=== PATIENT | male | born 1960 | race Caucasian/White ===

== ENCOUNTER 2017-02-18 18:55 | Observation (INO) ==
[2017-02-18] MEDS ORDERED: Aspirin 81 MG TAB.CHEW PO ONE (19:40)
[2017-02-18] MEDS ORDERED: Nitroglycerin 0.4 MG TAB.SUBL SL PRN (19:41)
--- NOTE | 2017-02-18 19:41 | Emergency Department Note ---
Disposition Clinical Impression: Unstable angina Chest pain Qualifiers: Chest pain type: unspecified Qualified Code(s): R07.9 - Chest pain, unspecified Disposition: Admitted As Inpatient Condition: Fair Time of Disposition: 21:54 Chest Pain HPI - General Chief Complaint: ED Chest Pain Stated Complaint: CP Time Seen by Provider: 02/18/17 19:34 Source: patient Mode of arrival: ambulatory Limitations: no limitations Vital Signs Reviewed: Yes Nursing Notes Reviewed: Yes - History of Present Illness HPI Narrative: 56-year-old male history of hypertension, diabetes, hyperlipidemia and obesity presents for evaluation of chest pain. Patient states he has had intermittent chest pain over the past 2-3 days. Noticed to be nonexertional but worse with exertion. Describes as a chest pressure in his left chest with radiation as left arm. Patient denies history of cardiac disease. Patient reports some dyspnea. There is no pleuritic component to his chest pain. Denies any fevers or cough. Denies history of vomiting or diaphoresis. Denies history of heart disease. Denies any cardiac evaluation of his heart in the past. Patient does report some black stools. Patient denies any history of active cancers. No hemoptysis. No history of DVT or PE. 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 Severity scale (1-10): 4 - Related Data Home Medications Medication Instructions Recorded Confirmed Sitagliptin Phos/Metformin HCl 1 each PO BID 02/18/17 02/18/17 [Janumet 50-1,000 mg Tablet] Allergies Allergy/AdvReac Type Severity Reaction Status Date / Time lisinopril AdvReac Cough Verified 02/18/17 19:02 All systems ED: reviewed and negative except as stated. Constitutional: Reports: as per HPI. Denies: fever Eyes: Reports: as per HPI ENT ED: Reports: as per HPI Cardiovascular: Reports: as per HPI, chest pain Respiratory: Reports: as per HPI, dyspnea Gastrointestinal: Reports: as per HPI. Denies: abdominal pain, nausea, vomiting Genitourinary: Reports: as per HPI Integumentary: Reports: as per HPI Neurological: Reports: as per HPI Psychiatric: Reports: as per HPI Endocrine: Reports: as per HPI Hematological/Lymphatic: Reports: as per HPI Chest Pain PMH - Past Medical History Medical history: Reports: diabetes, hyperlipidemia, hypertension Psychiatric history: Reports: depression - Social History Smoking Status: Never smoker Alcohol use: Reports: occasionally Drug use: Reports: none Physical Exam - General Limitations: no limitations General appearance: alert, in no apparent distress, obese - Head Head exam: atraumatic, normal inspection - Eye Eye exam: Present: normal appearance, EOMI - ENT ENT exam: normal exam - Neck Neck exam: Present: normal inspection - Chest Chest inspection: Present: normal inspection, symmetric chest wall rise. Absent : tenderness - Respiratory Respiratory exam: Present: normal lung sounds bilaterally. Absent: respiratory distress - Cardiovascular Cardiovascular exam: Present: regular rate, normal rhythm. Absent: systolic murmur - Abdominal Exam Abdominal exam: Present: soft, Non-Tender - Extremities Exam Extremities exam: Present: normal inspection. Absent: pedal edema - Back Exam Back exam: Present: normal inspection. Absent: CVA tenderness (R), CVA tenderness (L) - Neurological Exam Neurological exam: Present: alert, oriented X3, CN II-XII intact - Skin Skin exam: Present: warm, dry, intact, normal color Course Course Narrative: Patient seen and examined. Patient does have risk factors for coronary artery disease. Patient will get a cardiac evaluation with EKG, troponins. His interaction with aspirin as well as nitroglycerin. - Reevaluation(s) Reevaluation #1: Patient is pain-free. Time: 20:29 Reevaluation #2: Patient seen and examined. Pain improved. Will admit to hospital service for Cardiology monitoring. Time: 20:53 Vital Signs Temperature 97.6 F 02/18/17 18:58 Pulse Rate 90 02/18/17 18:58 Respiratory Rate 16 02/18/17 18:58 Blood Pressure 185/96 02/18/17 18:58 O2 Sat by Pulse Oximetry 96 02/18/17 18:58 Temperature 97.6 F 02/18/17 18:58 Pulse Rate 86 02/18/17 20:47 Respiratory Rate 18 02/18/17 21:35 Blood Pressure 152/89 02/18/17 21:35 O2 Sat by Pulse Oximetry 96 02/18/17 20:47 Oxygen Delivery Oxygen Delivery Room Air Chest Pain - MDM Narrative Medical decision making narrative: 56-year-old male present for by recent chest pain. Notes been intermittent over the past 2-3 days. Patient does have a concerning history of chest pressure on the left side with radiation down his left arm. Worse with exertion but does noted at rest on occasion. Reports dyspnea but no cough or fevers. Patient's pain is not pleuritic. Patient has no concerning symptoms of pulmonary embolism patient's evaluation is more consistent with ACS. Patient is not hypoxic. patient's records review does show that he has no recent cardiopulmonary evaluation. Patient's heart score is moderate with a score of 5. Patient would likely benefit from inpatient stress test and monitoring. Patient is agreeable with plan of care. Patient was pain-free in the emergency department. - Lab Data Lab results reviewed: Yes I reviewed the patient's lab results. Result diagrams: 02/18/17 20:16 02/18/17 20:16 Lab Results 02/18/17 02/18/17 02/18/17 Range/Units 20:16 20:16 20:16 WBC 6.2 (4.3-11.1) K/mcL RBC 5.00 (4.19-5.50) M/mcL Hgb 15.0 (12.9-16.9) g/dL Hct 42.4 (37.5-50.1) % MCV 84.8 (83.0-100.0) fL MCH 30.0 (28.0-33.3) pg MCHC 35.4 (31.6-35.5) g/dL RDW 12.4 (11.5-14.5) % Plt Count 179 (140-400) K/mcL MPV 10.5 (9.4-12.4) fL Immature Gran % 1.1 (0-4) % Seg Neutrophils % 53.2 % Lymphocytes % 33.6 % Monocytes % 7.6 % Eosinophils % 3.7 % Basophils % 0.8 % Neutrophils # 3.3 (1.6-8.9) K/mcL Lymphocytes # 2.1 (0.6-4.6) K/mcL Monocytes # 0.5 (0.0-1.3) K/mcL Eosinophils # 0.2 (0.0-0.6) K/mcL Basophils # 0.1 (0.0-0.2) K/mcL Sodium 140 (136-145) mEq/L Potassium 4.0 (3.5-4.5) mEq/L Chloride 105 (98-109) mEq/L Carbon Dioxide 28 (19-29) mEq/L BUN 17 (8-26) mg/dL Creatinine 1.27 H (0.72-1.25) mg/dL Est GFR ( Amer) > 60 (> 60) Est GFR (Non-Af Amer) 59 L (> 60) BUN/Creatinine Ratio 13 (6-26) Glucose 329 H (70-99) mg/dL Calculated Osmolality 304 H (280-300) Calcium 9.3 (8.6-10.8) mg/dL Troponin I 0.01 (0-0.03) ng/mL - Radiology Data Radiology results reviewed: Yes I reviewed the patient's radiology results. Chest X-Ray 02/18/17 18:57 IMPRESSION: No acute cardiopulmonary abnormality. D/ / Andrea Kaufman MD / Andrea Kaufman MD Interpreting Provider: Andrea Kaufman MD - EKG Data EKG attestation: Yes I reviewed and interpreted this EKG. EKG shows normal: sinus rhythm Rate: normal Rhythm: NSR [place]/QRS: normal Q waves: aVR, v1 T wave inversions noted in: v1 (Flattened) Interpretation: no acute changes, unchanged when compared to prior tracing (date ) (2011) Heart Score - Score History: Highly Suspicious EKG: Normal Age: 45-65 Risk Factors: Equal/Greater than 3 risk factor or history of atherosclerotic disease Troponin: Less than normal limit HEART Score Total: 5 S.B.A.R. - S.B.A.RRadha Situation: Demographics Background: Presenting Complaint Assessment: Vital Signs, Course and respsone to treatment Recommendation: Recommendation based on pending studies, treatments, or consults S.B.A.RRadha Report Given to: Dr. Zana StarkeyBRadhaAUmer Repor Time: 21:03 Attestation Statement - Attestation Attestation: I, Aashish Humphrey MD, personally evaluated this patient and discussed their management with the resident physician. I reviewed the resident's note and agree with the documented findings, medical decision making, and plan of care. 56-year-old male presents to the emergency department with a complaint of intermittent left-sided chest pain over the past 3-4 days. The pain radiates to the left arm. Pain seems to be improved with rest. No pain at present. Patient denies any prior history of heart problems however does have a history of diabetes, hypertension, and hyperlipidemia. Patient is also obese. He is a nonsmoker. On examination patient is a well-developed morbidly obese male in no acute distress. He is alert and oriented 3. There is no cyanosis or diaphoresis. Chest is nontender to palpation. Breath sounds are clear and equal bilaterally. Heart regular rate and rhythm. Abdomen soft and nontender with normal bowel sounds. Labs reviewed. Troponin normal. Chest x-ray negative. No acute changes on EKG. The hospitalist, Dr. Spann, was consulted and accepted admission of the patient.
[2017-02-18 20:26] LABS: Basophils # 0.1 K/mcL (0.0-0.2); Basophils % 0.8 %; Eosinophils # 0.2 K/mcL (0.0-0.6); Eosinophils % 3.7 %; Hematocrit 42.4 % (37.5-50.1); Immature Granulocytes % 1.1 % (0-4); Lymphocytes # 2.1 K/mcL (0.6-4.6); Lymphocytes % 33.6 %; Mean Corpuscular HGB Conc 35.4 g/dL (31.6-35.5); Mean Corpuscular Volume 84.8 fL (83.0-100.0); Mean Platelet Volume 10.5 fL (9.4-12.4); Monocytes # 0.5 K/mcL (0.0-1.3); Monocytes % 7.6 %; Neutrophils # 3.3 K/mcL (1.6-8.9); Platelet Count 179 K/mcL (140-400); Red Cell Distribution Width 12.4 % (11.5-14.5); Segmented Neutrophils % 53.2 %
[2017-02-18 20:41] LABS: BUN/Creatinine Ratio 13 (6-26); Blood Urea Nitrogen 17 mg/dL (8-26); Calcium 9.3 mg/dL (8.6-10.8); Carbon Dioxide 28 mEq/L (19-29); Chloride 105 mEq/L (98-109); Glucose 329 mg/dL (70-99); Osmolality,Calculated 304 (280-300); Sodium 140 mEq/L (136-145); eGFR For African Americans > 60 (> 60); eGFR For Non-African Americans 59 (> 60)
[2017-02-18] MEDS ORDERED: Naloxone 0.4 MG/ML INJ IVP PRN (22:14)
[2017-02-18] MEDS ORDERED: Ondansetron ODT 4 MG TAB.RAPDIS SL PRN (22:14)
[2017-02-18] MEDS ORDERED: Acetaminophen 325 MG TABLET PO PRN (22:14)
--- NOTE | 2017-02-18 22:24 | Internal Med History&Physical ---
<Olivier Lara - Last Filed: 02/18/17 22:19> Date of Encounter: 02/18/17 Time of Encounter: 21:50 Assessment and Plan (1) Chest pain Current visit: Yes Status: Acute Patient presents with 4 days of left-sided dull chest pain. Chest pain appears to be noncardiac in nature as it is exacerbated with left upper extremity movements, not exacerbated with walking or strenuous activity. Patient is not taking aspirin, it does not radiate to his jaw or left arm. His left shoulder blade pain he says is separate from his dull chest pain. Rest improves the pain. - Even though the presentation appears to be noncardiac his risk factors are significant enough to be concerning. He also has a significant past medical history of a father that had an TN in his 40s and a brother that has multiple stents. - Patient denies any history of myocardial infarction, coronary artery disease, tobacco abuse, peripheral artery disease. EKG reviewed demonstrating normal sinus rhythm with appropriate FL and QT interval. No ST elevation or depression. Risk factors: Hypertension, hyperlipidemia, type 2 diabetes with diabetic neuropathy, morbid obesity, obstructive sleep apnea. 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 Qualifiers: Chest pain type: unspecified Qualified Code(s): R07.9 - Chest pain, unspecified (2) Type 2 diabetes mellitus Current visit: Yes Status: Acute Known type II diabetic on oral anti-hyperglycemics. Patient presents hyperglycemic with a glucose greater than 300. Plan: - Before meals and at bedtime glucose checks - Low-dose insulin sliding scale Qualifiers: Qualified Code(s): E11.9 - Type 2 diabetes mellitus without complications (3) Hyperlipidemia Current visit: Yes Status: Acute Known history of hyperlipidemia. Patient is not on a statin or other appropriate medications. Plan: - Starting statin, lipid panel. Qualifiers: Qualified Code(s): E78.5 - Hyperlipidemia, unspecified (4) Obstructive sleep apnea Current visit: Yes Status: Acute Patient has a history of obstructive sleep apnea, uses CPAP every night while sleeping. We will continue during inpatient stay. (5) DVT prophylaxis Current visit: Yes Status: Acute Lovenox subcutaneous every morning. Internal Medicine - H&P: HPI Chief complaint: chest pain Admitted From: Emergency Dept Plans for Post Hospital Care: Home History of present illness: Mr. Linares is a 56 year old male significant past mental history of type 2 diabetes, hypertension, hyperlipidemia, morbid obesity, arthritis presented to the emergency department with left-sided chest pain. Mr. 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 He started developing a left sided chest dull pain that will stay constant but improved with rest when he lays down in bed. It is not really exacerbated with activity such as walking but more so when he is using his upper extremities. He also notices a sharp pain in his shoulder blade when he extends at the glenohumeral joint. He said over the last 4 days this pain has been more severe and unremitting and today it was not getting better which started to concern him and his significant other. He denies any associated nausea, vomiting, diarrhea , palpitations, diaphoresis, blurry vision, acid reflux, abdominal pains, change in urination or frequency of urination. He does admit to having occasional black or dark stools 2 episodes over the past 3 weeks. He said it is abnormal but denies it being sticky in nature or any jarrett red blood. He said he had a colonoscopy 5 years ago without any concerning findings. He has been taking his metformin but has not been on any blood pressure medications for several months since they were too expensive. He says his blood pressure is not controlled without blood pressure medications. He has improved his diet and has been trying to eat healthier. He denies smoking or previous history of smoking except for an occasional cigar in social settings. He denies excess alcohol use or any drug use. He maintains good humor and is very talkative without any signs of distress. Past Med Surg Social Fam HX - Past Medical History Medical history: diabetes, hyperlipidemia, hypertension Psychiatric history: depression - Past Surgical History Surgical History: cataract - Social History Smoking Status: Never smoker Smokeless Tobacco Status: No Alcohol use: occasionally Drug use: none - Family History Father Living Status: Hx Family Endocrine Disorder: Yes (Type 2 diabetes) Mother Race: Living Status: Cause of : Lymphoma Internal Medicine - H&P: Meds Sitagliptin Phos/Metformin HCl [Janumet 50-1,000 mg Tablet] 1 each PO BID [History] Allergies lisinopril Adverse Reaction (Verified 02/18/17 19:02) Cough All Systems PM: A 10-system review of systems was performed and is negative for pertinent findings except as documented above in the HPI. - Constitutional Constitutional: no chills, no fever(s), no night sweats - EENT Eyes: no change in vision, no discharge, no pain, no photophobia Ears: no ear discharge, no ear pain, no tinnitus Nose, mouth and throat: no dysphagia, no nasal discharge, no neck pain, no sore throat - Cardiovascular Cardiovascular ROS IM: chest pain, no diaphoresis, no dyspnea, no lightheadedness, no palpitations, no syncope - Respiratory Respiratory: no cough, no dyspnea, no wheezing, no excessive phlegm production - Gastrointestinal Gastrointestinal: no abdominal pain, no diarrhea, no hematemesis, no hematochezia, no melena, no nausea, no vomiting - Musculoskeletal Musculoskeletal ROS IM: back pain, no numbness, no tingling Additional comments: Left shoulder blade pain. - Integumentary Integumentary IM: no rash, no unusual bruising - Neurological Neurological ROS: no confusion, no convulsions, no focal weakness, no numbness, no tingling, no tremor(s) - Hematologic/Lymphatic Hematologic/Lymphatic: no easy bruising - Constitutional Vitals: Temp Pulse Resp BP Pulse Ox 98 F 85 18 130/84 96 02/18/17 22:17 02/18/17 22:17 02/18/17 22:17 02/18/17 22:17 02/18/17 22:17 Exam: General: Patient alert, awake, oriented 3, interactive, in no acute distress HEENT: Normocephalic, atraumatic, pupils equal reactive to light, nasal cavity patent and open septum median position, oral mucosa moist, uvula midline, neck supple trachea midline no palpable lymphadenopathy, no thyromegaly. Chest: Symmetric bilateral correlating with respiratory effort, effort nonlabored. Cardiac: Regular rate and rhythm, positive S1 and S2. no bruits appreciated bilateral carotids, Radial pulses 2+ bilateral, posterior tibial and dorsal pedal pulses 2+ bilateral. Respiratory: Clear to auscultation all lung martin Abdomen: Soft, obese, nontender, positive bowel sounds, no palpable masses appreciated on examination Extremities: Symmetric bilateral, bilateral lower extremities without erythema or edema patient moving all 4 extremities spontaneously. Neurologic: No focal deficits appreciated on examination. Face symmetric, muscle strength symmetric bilateral upper and lower extremities. Internal Med - H&P Results - Labs CBC & Chem 7: 02/18/17 20:16 02/18/17 20:16 <David Spann - Last Filed: 02/19/17 05:48> Date of Encounter: 02/18/17 Internal Medicine - H&P: HPI Admitted From: Hospital to Hospital Transfer History of present illness: Mr. Linares is a 56 year old male Past Med Surg Social Fam HX - Family History Father Hx Family Cardiac Disorders: Yes (TN) Hx Family Endocrine Disorder: Yes (DM) Mother Hx Family Cancer: Yes (LUEKEMIA) Brother Hx Family Cardiac Disorders: Yes (DEFIB) Hx Family Cancer: Yes All Systems PM: A 10-system review of systems was performed and is negative for pertinent findings except as documented above in the HPI. - Constitutional Vitals: Temp Pulse Resp BP Pulse Ox 97.4 F L 84 18 166/98 98 02/19/17 02:39 02/19/17 02:39 02/19/17 02:39 02/19/17 02:39 02/19/17 02:39 Internal Med - H&P Results - Labs CBC & Chem 7: 02/19/17 03:25 02/19/17 03:25 Labs: Short CBC 02/19/17 Range/Units 03:25 WBC 5.0 (4.3-11.1) K/mcL Hgb 14.0 (12.9-16.9) g/dL Hct 41.6 (37.5-50.1) % Plt Count 153 (140-400) K/mcL BMP 02/19/17 03:25 Sodium 139 Potassium 4.0 Chloride 105 Carbon Dioxide 29 BUN 18 Creatinine 1.22 Glucose 329 H Calcium 8.7 Cardiac Enzymes 02/19/17 Range/Units 03:25 Troponin I 0.00 (0-0.03) ng/mL - EKG Data -: EKG Interpreted by Myself EKG shows normal: sinus rhythm - Diagnostic Studies Chest x-ray Status: image reviewed by me - Attending Attestation I personally interviewed and examined this patient and my medical decision- making was reviewed with the Resident Physician. I agree with the documented findings, disposition and treatment plan as described. David Spann MD, MPH Hospitalist
[2017-02-18] MEDS ORDERED: D5% in Water 1,000 ML IVC PRN (22:39)
[2017-02-18] MEDS ORDERED: Dextrose Gel 15 GM PO PRN ×2 (22:39)
[2017-02-18] MEDS ORDERED: *HR* Dextrose 50 % in Water (Syg) 50 ML SYRINGE IVP PRN (22:39)
[2017-02-18] MEDS: 0.9 % Sodium Chloride 1,000 ML IVC SCH (23:27)
[2017-02-19 04:14] LABS: Hematocrit 41.6 % (37.5-50.1); Mean Corpuscular HGB Conc 33.7 g/dL (31.6-35.5); Mean Corpuscular Hemoglobin 28.8 pg (28.0-33.3); Mean Corpuscular Volume 85.6 fL (83.0-100.0); Mean Platelet Volume 10.3 fL (9.4-12.4); Platelet Count 153 K/mcL (140-400); Red Blood Count 4.86 M/mcL (4.19-5.50)
[2017-02-19 04:35] LABS: BUN/Creatinine Ratio 15 (6-26); Blood Urea Nitrogen 18 mg/dL (8-26); Calcium 8.7 mg/dL (8.6-10.8); Carbon Dioxide 29 mEq/L (19-29); Chloride 105 mEq/L (98-109); Chol/HDL Ratio 7.3 (0-4.9); Cholesterol 191 mg/dL (< 200); Glucose 329 mg/dL (70-99); HDL Cholesterol 26 mg/dL (40-59); LDL Cholesterol,Calculated 106 mg/dL (0-99); Osmolality,Calculated 303 (280-300); Sodium 139 mEq/L (136-145); Triglycerides 295 mg/dL (< 150); eGFR For African Americans > 60 (> 60); eGFR For Non-African Americans > 60 (> 60)
[2017-02-19] MEDS ORDERED: Regadenoson 0.4 MG/5 ML SYRINGE IVP ONE (05:50)
[2017-02-19] MEDS: *HR* Enoxaparin 40 MG/0.4 ML SYRINGE SQ SCH (05:52)
--- NOTE | 2017-02-19 09:35 | Electrocardiograph Report ---
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
[2017-02-19] MEDS: Aspirin 81 MG TAB.CHEW PO SCH (10:54)
[2017-02-19] MEDS: Insulin LISPRO 300 UNITS/3 ML VIAL SQ SCH ×3 (10:54→17:18)
[2017-02-19] MEDS: 0.9 % Sodium Chloride 1,000 ML IVC SCH ×2 (11:03→19:30)
--- NOTE | 2017-02-19 18:37 | Internal Med Progress Note ---
Date of Encounter: 02/19/17 Time of Encounter: 11:00 - Assessment and plan (1) Chest pain Current Visit: Yes Status: Acute Assessment and plan: Patient states that he has had 3-4 day history of left chest pain. He says that he has a right rotator cuff injury and has been using his left arm more and has noticed pain since that time. He describes it as a chest heaviness A does report shortness of breath but denies diaphoresis or nausea. He has a 2 day stress test and will finish tomorrow. There is no radiation of the pain. It is not reproducible with deep inspiration or palpation. He says that it does change and is reproducible with movement of his left arm. He reports classic GERD symptoms and says he has been treating it with over-the- counter medication. He has been taking Pepto-Bismol frequently. His prior cardiac history, he does not smoke, does not use recreational drugs, does not drink alcohol frequently. He has been started on aspirin, Lipitor. Lipid panel is elevated. I will start patient on low-dose beta jakob. Troponins have been negative. EKG was normal sinus rhythm with a rate of 89, CA interval 145, QRS duration 93, QTC 387. Chest x-ray was negative. Continue telemetry Stress test results Cardiology consult if abnormal. Qualifiers: Chest pain type: unspecified Qualified Code(s): R07.9 - Chest pain, unspecified (2) Type 2 diabetes mellitus Current Visit: Yes Status: Acute Assessment and plan: A1c ordered for the morning. Continue Accu-Cheks before meals at bedtime, diabetic diet, sliding scale insulin. Qualifiers: Diabetes mellitus complication status: without complication Diabetes mellitus adjunct faculty for medical terminology insulin use: without prison use Qualified Code(s): E11.9 - Type 2 diabetes mellitus without complications (3) Hyperlipidemia Current Visit: Yes Status: Acute Qualifiers: Qualified Code(s): E78.5 - Hyperlipidemia, unspecified (4) Obstructive sleep apnea Current Visit: Yes Status: Acute (5) DVT prophylaxis Current Visit: Yes Status: Acute - Time Spent With Patient less than 15 minutes - Subjective Interval history: She was seen and evaluated at 11 AM. He reports his chest now feels "numb like ". He denies actual chest pain, diaphoresis or nausea, shortness of breath. He reports that he has chronic GERD has been treating himself with over-the- counter medications I will start him on omeprazole. Abdomen is tender in epigastric area. Pain is not reproducible with deep inspiration, palpation or movement. Patient is a 2 day stress test, will finish tomorrow. - Constitutional Vitals: Temp Pulse Resp BP Pulse Ox 97.8 F 99 16 128/81 96 02/19/17 18:31 02/19/17 18:31 02/19/17 18:31 02/19/17 18:31 02/19/17 18:31 General appearance: Present: A&O X 3, morbidly obese, pleasant, no acute distress, answers questions appropriately - Head Head exam: Present: normal inspection - Eye Eye exam: Present: normal appearance, conjuntiva pink - ENT ENT exam: Present: mucous membranes moist, normal exam, normal external ear exam - Neck Neck exam general surgery: Present: normal inspection. Absent: lymphadenopathy , tenderness - Respiratory Respiratory exam: Present: CTAB. Absent: chest wall tenderness, decreased breath sounds, rales, respiratory distress, rhonchi, stridor, wheezes - Cardiovascular Cardiovascular exam: Present: RRR, +S1, +S2. Absent: clicks, diastolic murmur, gallop, systolic murmur - GI/Abdominal GI/Abdominal exam: Present: distended, normal bowel sounds, tenderness. Absent : hepatomegaly - Extremities Exam Extremities exam: Present: joint swelling, normal inspection, warm, radial pulses palpable and symetrical. Absent: pedal edema, tenderness - Neurological Exam Neurological exam: Present: alert, oriented X3, no focal deficits. Absent: facial droop, speech deficit Internal Medicine: Result - Labs CBC & Chem 7: 02/19/17 03:25 02/19/17 03:25 Labs: Short CBC 02/19/17 Range/Units 03:25 WBC 5.0 (4.3-11.1) K/mcL Hgb 14.0 (12.9-16.9) g/dL Hct 41.6 (37.5-50.1) % Plt Count 153 (140-400) K/mcL BMP 02/19/17 03:25 Sodium 139 Potassium 4.0 Chloride 105 Carbon Dioxide 29 BUN 18 Creatinine 1.22 Glucose 329 H Calcium 8.7 Cardiac Enzymes 02/19/17 02/19/17 02/19/17 Range/Units 03:25 07:43 13:52 Troponin I 0.00 0.00 0.00 (0-0.03) ng/mL Consult Discharge Plan - Plan Referrals: NO,PCP [Non-Partnered Physician] -
[2017-02-19] MEDS ORDERED: Insulin LISPRO 300 UNITS/3 ML VIAL SQ SCH (21:00)
[2017-02-20] MEDS: 0.9 % Sodium Chloride 1,000 ML IVC SCH (04:19)
[2017-02-20] MEDS: *HR* Enoxaparin 40 MG/0.4 ML SYRINGE SQ SCH (05:17)
[2017-02-20 05:37] LABS: Basophils % 0.7 %; Eosinophils # 0.2 K/mcL (0.0-0.6); Eosinophils % 3.5 %; Hematocrit 40.7 % (37.5-50.1); Hemoglobin 14.2 g/dL (12.9-16.9); Immature Granulocytes % 1.2 % (0-4); Lymphocytes # 1.6 K/mcL (0.6-4.6); Lymphocytes % 26.7 %; Mean Corpuscular HGB Conc 34.9 g/dL (31.6-35.5); Mean Corpuscular Hemoglobin 29.6 pg (28.0-33.3); Mean Corpuscular Volume 84.8 fL (83.0-100.0); Mean Platelet Volume 10.2 fL (9.4-12.4); Monocytes # 0.4 K/mcL (0.0-1.3); Neutrophils # 3.7 K/mcL (1.6-8.9); Platelet Count 149 K/mcL (140-400); Segmented Neutrophils % 60.9 %
[2017-02-20 05:51] LABS: Hemoglobin A1C 8.3 %
[2017-02-20 05:53] LABS: BUN/Creatinine Ratio 16 (6-26); Blood Urea Nitrogen 16 mg/dL (8-26); Calcium 8.9 mg/dL (8.6-10.8); Carbon Dioxide 30 mEq/L (19-29); Chloride 104 mEq/L (98-109); Glucose 294 mg/dL (70-99); Osmolality,Calculated 298 (280-300); Potassium 4.4 mEq/L (3.5-4.5); Sodium 138 mEq/L (136-145); eGFR For African Americans > 60 (> 60); eGFR For Non-African Americans > 60 (> 60)
[2017-02-20] MEDS: Insulin LISPRO 300 UNITS/3 ML VIAL SQ SCH ×2 (09:48→11:31)
[2017-02-20] MEDS: Aspirin 81 MG TAB.CHEW PO SCH (09:57)
[2017-02-20 11:04] VITALS: BP 141/87
--- NOTE | 2017-02-20 11:32 | Nuclear Medicine Stress Report ---
Regadenoson Nuclear 2 day Name: Kan Linares Date of Study: 02/19/2017 Date: 1960 Ht: 72.0 in Medical Record#: [id number] Age: 56 Wt: 361.0 lb Gender: Male Order #: [id number] Location: [facility] Room: [facility] Supervising Provider: Maggie Horan CNP Reading Physician: Marc Campbell MD, [facility] Ordering Physician: Chel Brown CNP Primary Care Physician: Claudio Aviles MD Stress Technologist: Yakov Adler CHANDELIER MAKER, [facility] Asphalt Plant Worker: Abelardo Reyes Indications: Chest Pain Impression: The left ventricle is borderline dilated. Gated LVEF = 52%. There is a small sized, moderate-severe intensity, fixed perfusion defect involving the LV apex. Suspect artifact, however, a small myocardial infarction cannot be excluded. There is no evidence of reversible myocardial ischemia. History: Hypertension Diabetes Hypercholesteremia Stress Test Summary: Stress Test Type: Pharmacologic Regadenoson 0.4mg/5ml given IV Baseline Information: Initial Heart Rate: 79 Blood Pressure: 118/80 Stress Information: Test Terminated Due to (primary): As per protocol Maximum Blood Pressure: 112/80 Maximum Heart Rate: 96 Percent Maximum Heart Rate Achieved: 58 Double Product: [id number] Symptoms: Shortness of breath Nuclear Summary: SPECT myocardial perfusion imaging using [id number] Sestamibi given intravenously was performed at rest and following cardiac stress testing. The resting images were obtained following initial dose of 31.8 mCi. Following stress an additional dose of 35.3 mCi was given at peak exercise or 30 seconds post regadenoson infusion. Findings: Stress Note * Resting ECG demonstrated normal sinus rhythm. * No baseline arrhythmias were noted. * Patient had no chest pain during stress. * No arrhythmias were noted during stress. * No significant ECG changes with regadenoson. Hemodynamic responses * Normal hemodynamic responses to pharmacologic stress. Study Quality * Study quality is average. Gated EF % * Gated LVEF = 52%. Left Ventricle * The left ventricle is borderline dilated. * There is a small sized, moderate-severe intensity, fixed perfusion defect involving the LV apex. Suspect artifact, however, a small myocardial infarction cannot be excluded. * All other segmental perfusion normal in rest and stress. * There is no evidence of reversible myocardial ischemia. TID * No evidence of transient ischemic dilatation. Updated by Marc Campbell MD, FACC on 02/20/2017 11:26:40 AM electronically signed on 02/20/2017 11:27:41 AM with status of Final
--- NOTE | 2017-02-20 14:05 | Discharge Summary ---
Date of Encounter: 02/20/17 Time of Encounter: 13:10 - Discharge Diagnosis (1) Chest pain Priority: Primary Status: Acute Comments: Chest pain is resolved. Patient denies chest pain today. Stress test showed that the left ventricle is borderline dilated. Gated EF of 52%. There is a small sized, moderate severe intensity, fixed perfusion defect involving the LV apex. Suspect artifact, however, a small myocardial infarction cannot be excluded. There is no evidence of reversible myocardial ischemia. I discussed case with cardiology RELIGIOUS LEADER. Patient is to follow up outpatient in the clinic. HEENT I discussed risk factor modification including weight loss, controlling hypertension, diabetes, and cholesterol. Patient verbalized understanding. Patient will be sent home on aspirin, Lipitor, metoprolol. Qualifiers: Chest pain type: unspecified Qualified Code(s): R07.9 - Chest pain, unspecified (2) Type 2 diabetes mellitus Priority: Secondary Status: Chronic Comments: Chronic. A1c is 8.3. Continue medication regimen at home, as well as Accu- Cheks. Lifestyle modifications are [place] to cardiac risk factor reduction. Qualifiers: Diabetes mellitus complication status: without complication Diabetes mellitus mcfp insulin use: without long term care administrator use Qualified Code(s): E11.9 - Type 2 diabetes mellitus without complications (3) Hyperlipidemia Priority: Secondary Status: Chronic Comments: Chronic. Continue Lipitor. Lifestyle modifications. Qualifiers: Qualified Code(s): E78.5 - Hyperlipidemia, unspecified (4) Obstructive sleep apnea Priority: Secondary Status: Chronic (5) DVT prophylaxis Priority: Secondary Status: Acute Comments: Lovenox subcutaneous. (6) Morbid obesity with BMI of 45.0-49.9, adult Priority: Secondary Status: Chronic Comments: Chronic. Lifestyle changes. - Discharge Medications Prescriptions: Aspirin 81 mg PO DAILY #30 tab Atorvastatin [Lipitor] 40 mg PO HS #30 tab Metoprolol [Lopressor] 12.5 mg PO BID #30 tab Home Medications: Sitagliptin Phos/Metformin HCl [Janumet 50-1,000 mg Tablet] 1 each PO BID [History] Aspirin 81 mg PO DAILY #30 tab 02/20/17 [Rx] Atorvastatin [Lipitor] 40 mg PO HS #30 tab 02/20/17 [Rx] Metoprolol [Lopressor] 12.5 mg PO BID #30 tab 02/20/17 [Rx] Allergies/Adverse Reactions: Allergies lisinopril Adverse Reaction (Verified 02/18/17 19:02) Cough Procedures/tests Complete & Pending: Procedures Performed prior 72 hours Category Date Time Status NM carleen perf SPECT multi [NM] Routine Exams 02/18/17 22:30 Taken ECG 12 lead ECG [ECG] AM 0600 Y 02/19/17 06:00 Ordered SP pharm nuclear stress Routine Y 02/19/17 07:10 Completed Date of admission: 02/18/17 21:17 Primary care physician: Claudio Aviles MD Discharging clinician: Chel Brown Anticipated date of discharge: 02/20/17 - Patient Status Disposition: Home, Self-Care Condition: Good Functional capacity at discharge: independent ambulation Overall status at discharge: patient is back to baseline - Discharge Instructions Follow Up With: NO,PCP [Non-Partnered Physician] - Additional Instructions: Follow up with her primary care physician in the next 7-10 days for follow-up appointment. Start your new medications today. Cardiology will call you for a follow-up visit. If you do not hear from them in the next 3-4 days, call [place] [facility] for an appointment. Return to the emergency department for any new or worsening symptoms. - Diet and Activity Activity: increase activity as tolerated Diet: diabetic diet, low fat, low cholesterol, low salt diet Hospital course: Mr. Linares is a 56 year old male with medical history of diabetes, hypertension , morbid obesity, arthritis and sleep apnea. He presents to the emergency department yesterday for left-sided chest pain. 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 He reports he believes using his left arm and increased job stress has caused him to have the chest pain. He reports left-sided dull pain will stay constant but improved with rest It is not increased with deep inspiration, movement, or palpation. He denies nausea, vomiting, diarrhea, palpitations, diaphoresis, headache, dizziness. Patient states that he has been taking his metformin, was not taking his blood pressure medications because they became too expensive. He reports hypertension when he does not take his medications. He is a nonsmoker, he does not drink alcohol. Patient concluded his 2 day stress test today. He denies chest pain today. Chest x-ray shows no acute cardiopulmonary abnormality. EKG showed sinus rhythm with a rate of 89, RI interval 145, QRS duration 93, QTC 387. Troponins were negative 3. Stress test showed that the left ventricle is borderline dilated area gated EF is 52%. There is a small sized, moderate to severe intensity fixed perfusion defect involving the LV apex. Suspect artifact, however, a small myocardial infarction cannot be excluded. There is no evidence of reversible myocardial ischemia. Patient and I discussed the results he is aware. I also discussed the results with cardiology RELIGIOUS LEADER and class b truck driver on-call, patient will follow up outpatient in their office. Lipid panel is elevated and he has been started on a statin. He has not been consistent with taking his medications due to financial expense. He has been started on a beta jakob and will be sent home with prescription. He will also take a baby aspirin daily. His A1c is mildly elevated at 8.3. Patient states he has been compliant with his metformin, however, he does not always adhere to a diabetic diet. We discussed increasing exercise and decreasing risk factors. Patient's vital signs and stable, labs are within normal limits. Patient is ready for discharge. - Time Spent with Patient Total time spent providing and/or coordinating discharge services: Less than 30 minutes - Constitutional Vitals: Temp Pulse Resp BP Pulse Ox 97.4 F L 62 14 141/87 98 02/20/17 10:58 02/20/17 10:58 02/20/17 10:58 02/20/17 10:58 02/20/17 10:58 General appearance: Present: A&O X 3, morbidly obese, pleasant, no acute distress, answers questions appropriately - Head Head exam: Present: normal inspection - Eye Eye exam: Present: normal appearance, conjuntiva pink - ENT ENT exam: Present: mucous membranes moist, normal exam - Neck Neck exam general surgery: Present: normal inspection. Absent: lymphadenopathy , tenderness - Respiratory Respiratory exam: Present: CTAB. Absent: chest wall tenderness, rales, respiratory distress, rhonchi, stridor, wheezes, tachypnea - Cardiovascular Cardiovascular exam: Present: RRR, +S1, +S2. Absent: diastolic murmur, systolic murmur - GI/Abdominal GI/Abdominal exam: Present: distended, soft. Absent: hepatomegaly, tenderness - Neurological Exam Neurological exam: Present: alert, oriented X3, strengths equal and symetr throughout. Absent: facial droop, speech deficit - Skin Skin exam: Present: dry, intact, normal color, warm. Absent: rash
== END 2017-02-20 15:30 | disposition home or self-care (01) ==
LOC: EMEROO 18:55 → 3BNU 18:55
PROVIDERS: ADMIT Internal Medicine; ATTEND Registered Nurse